=== PATIENT | female | born 1985 | race Caucasian/White ===

== ENCOUNTER 2018-04-12 17:07 | Emergency (ER) | payer OTHER ==
[~2018-04-12] VITALS: Ht 167.6 cm; Wt 74.8 kg
[~2018-04-12 17:07] MED LIST: BACTRIM DS TAB1 EACH PO; CARISOPRODOL 3350 MG PO; CHANTIX1 MG PO; FLEXERIL PO; MOBIC15 MG PO; PERCOCET 5-3251 EACH PO; PREDNISONE 10 M10 MG PO; TRAMADOL 50 MG50 MG; TRAMADOL 50 MG50 MG PO; ULTRAM 50MG TAB50 MG PO; VENTOLIN HFA 1818 GM; VENTOLIN17 GM; XANAX 0.5 MG0.5 MG
[2018-04-12] MEDS ORDERED: ACCUNEB SO1.25 MG/1 INH (17:16)
[2018-04-12 18:03] VITALS: BP 127/72
[2018-04-12] MEDS ORDERED: FLAGYL500 MG PO (18:05)
[2018-04-12] MEDS ORDERED: DOXYCYCLINE 10100 MG PO (18:05)
[2018-04-12] MEDS ORDERED: NAPROSYN500 MG PO (18:05)
== END 2018-04-12 18:12 | disposition home or self-care (01) ==
LOC: M.ERS 17:07
DX: S61.254A Open bite of right ring finger without damage to nail, initial encounter (principal); Z23 Encounter for immunization; F17.210 Nicotine dependence, cigarettes, uncomplicated; J45.909 Unspecified asthma, uncomplicated; Z88.6 Allergy status to analgesic agent; Z88.0 Allergy status to penicillin; W54.0XXA Bitten by dog, initial encounter; Y92.412 Parkway as the place of occurrence of the external cause; Y99.0 Civilian activity done for income or pay; Y99.8 Other external cause status

== ENCOUNTER 2019-08-10 05:02 | Emergency (ER) | payer BC ==
[~2019-08-10] VITALS: Ht 167.6 cm; Wt 73.0 kg
[~2019-08-10 05:02] MED LIST changes: +ACCUNEB SO1.25 MG/1 INH; +DOXYCYCLINE 10100 MG PO; +FLAGYL500 MG PO; +NAPROSYN500 MG PO
[2019-08-10] MEDS ORDERED: PROMETH-CODEIN 65 ML PO (05:37)
[2019-08-10] MEDS ORDERED: FLONASE 0.05%50 MCG NARES (05:37)
[2019-08-10 05:48] LABS: INFLUENZA A ANTIGEN Negative (Negative)
[2019-08-10] MEDS ORDERED: TAMIFLU75 MG PO (05:49)
[2019-08-10 06:05] VITALS: BP 135/71
== END 2019-08-10 06:07 | disposition home or self-care (01) ==
LOC: M.ERS 05:02
PROVIDERS: Emergency Medicine
DX: J10.1 Influenza due to other identified influenza virus with other respiratory manifestations (principal); J45.909 Unspecified asthma, uncomplicated; F17.210 Nicotine dependence, cigarettes, uncomplicated; Z88.0 Allergy status to penicillin; Z88.6 Allergy status to analgesic agent

== ENCOUNTER 2019-11-24 17:29 | Emergency (ER) | payer OTHER ==
[~2019-11-24] VITALS: Ht 165.1 cm; Wt 79.4 kg
[~2019-11-24 17:29] MED LIST changes: +FLONASE 0.05%50 MCG NARES; +PROMETH-CODEIN 65 ML PO; +TAMIFLU75 MG PO
[2019-11-24 17:37] VITALS: BP 129/80
[2019-11-24] MEDS ORDERED: TRAMADOL 50 MG50 MG PO (17:40)
[2019-11-24] MEDS ORDERED: NORCO 5-325 TA1 EAC1 PO (18:12)
[2019-11-24] MEDS ORDERED: MEDROLDOSEPACK PO (18:12)
== END 2019-11-24 18:43 | disposition home or self-care (01) ==
LOC: M.ERS 17:29
DX: M79.605 Pain in left leg (principal); J45.909 Unspecified asthma, uncomplicated; F17.210 Nicotine dependence, cigarettes, uncomplicated; Z88.6 Allergy status to analgesic agent; Z88.0 Allergy status to penicillin; Z79.899 Other long term (current) drug therapy

== ENCOUNTER 2019-12-02 22:53 | Emergency (ER) | payer OTHER ==
[~2019-12-02] VITALS: Ht 167.6 cm; Wt 74.8 kg
[~2019-12-02 22:53] MED LIST changes: +MEDROLDOSEPACK PO; +NORCO 5-325 TA1 EAC1 PO
[2019-12-02] MEDS ORDERED: XANAX (23:06)
[2019-12-03] MEDS ORDERED: VISTARIL 25 MG25 M1 PO (00:34)
[2019-12-03 00:50] VITALS: BP 118/70
== END 2019-12-03 00:50 | disposition home or self-care (01) ==
LOC: M.ERS 22:53
DX: L50.9 Urticaria, unspecified (principal); F17.210 Nicotine dependence, cigarettes, uncomplicated; F41.9 Anxiety disorder, unspecified; J45.909 Unspecified asthma, uncomplicated; Z88.0 Allergy status to penicillin; Z88.6 Allergy status to analgesic agent; Z79.899 Other long term (current) drug therapy

== ENCOUNTER 2020-01-06 23:03 | Emergency (ER) | payer OTHER ==
[~2020-01-06] VITALS: Ht 152.4 cm; Wt 74.8 kg
[~2020-01-06 23:03] MED LIST changes: +VISTARIL 25 MG25 M1 PO; +XANAX
[2020-01-06] MEDS ORDERED: NORCO 5-325 TA1 EAC2 PO (23:21)
[2020-01-06] MEDS ORDERED: CLEOCIN HCL150 M1 PO (23:21)
[2020-01-06 23:30] VITALS: BP 152/72
== END 2020-01-06 23:34 | disposition home or self-care (01) ==
LOC: M.ERS 23:03
DX: K02.9 Dental caries, unspecified (principal); K03.81 Cracked tooth; J45.909 Unspecified asthma, uncomplicated; F17.210 Nicotine dependence, cigarettes, uncomplicated; Z88.6 Allergy status to analgesic agent; Z88.0 Allergy status to penicillin

== ENCOUNTER 2020-02-03 16:03 | Emergency (ER) | payer OTHER ==
[~2020-02-03] VITALS: Ht 167.6 cm; Wt 77.1 kg
[~2020-02-03 16:03] MED LIST changes: +CLEOCIN HCL150 M1 PO; +NORCO 5-325 TA1 EAC2 PO
[2020-02-03] MEDS ORDERED: XANAX1 MG PO (16:28)
[2020-02-03] MEDS ORDERED: TRAMADOL 50 MG50 MG PO (16:28)
[2020-02-03] MEDS ORDERED: BENADRYL25 MG PO (17:56)
[2020-02-03] MEDS ORDERED: ZPAK PO (17:56)
[2020-02-03] MEDS ORDERED: VENTOLIN HFA 1818 GM INH (17:56)
[2020-02-03] MEDS ORDERED: MEDROLDOSEPACK PO (17:56)
[2020-02-03 19:30] VITALS: BP 123/57
== END 2020-02-03 19:30 | disposition home or self-care (01) ==
LOC: M.ERS 16:03
DX: J98.8 Other specified respiratory disorders (principal); L50.9 Urticaria, unspecified; J45.909 Unspecified asthma, uncomplicated; F41.9 Anxiety disorder, unspecified; F17.210 Nicotine dependence, cigarettes, uncomplicated; Z20.828 Contact with and (suspected) exposure to other viral communicable diseases; Z88.0 Allergy status to penicillin; Z88.8 Allergy status to other drugs, medicaments and biological substances

== ENCOUNTER 2020-04-05 14:22 | Emergency (ER) | payer OTHER ==
[~2020-04-05] VITALS: Ht 167.6 cm; Wt 77.1 kg
[~2020-04-05 14:22] MED LIST changes: +BENADRYL25 MG PO; +VENTOLIN HFA 1818 GM INH; +XANAX1 MG PO; +ZPAK PO
[2020-04-05] MEDS ORDERED: NORCO 5-325 TA1 EAC2 PO (16:13)
[2020-04-05 16:25] VITALS: BP 145/85
== END 2020-04-05 16:25 | disposition home or self-care (01) ==
LOC: M.ERS 14:22
DX: M25.511 Pain in right shoulder (principal); R07.89 Other chest pain; J45.901 Unspecified asthma with (acute) exacerbation; F17.210 Nicotine dependence, cigarettes, uncomplicated; Z88.6 Allergy status to analgesic agent; Z88.0 Allergy status to penicillin

== ENCOUNTER 2020-04-27 22:09 | Emergency (ER) | payer OTHER ==
[~2020-04-27] VITALS: Ht 167.6 cm; Wt 77.1 kg
[2020-04-27] MEDS ORDERED: PREDNISONE 20 M20 MG PO (22:40)
[2020-04-27 23:11] VITALS: BP 124/84
== END 2020-04-27 23:12 | disposition home or self-care (01) ==
LOC: M.ERS 22:09
DX: J30.81 Allergic rhinitis due to animal (cat) (dog) hair and dander (principal); R06.02 Shortness of breath; F41.9 Anxiety disorder, unspecified; F17.210 Nicotine dependence, cigarettes, uncomplicated; Z79.899 Other long term (current) drug therapy; Z88.6 Allergy status to analgesic agent; Z88.0 Allergy status to penicillin

== ENCOUNTER 2020-05-20 19:50 | Emergency (ER) | payer OTHER ==
[~2020-05-20] VITALS: Ht 167.6 cm; Wt 77.1 kg
[~2020-05-20 19:50] MED LIST changes: +PREDNISONE 20 M20 MG PO
[2020-05-20 20:36] LABS: INFLUENZA A ANTIGEN Negative (Negative); INFLUENZA B ANTIGEN Negative (Negative)
[2020-05-20] MEDS ORDERED: ALBUTEROL2.5 MG/31 INH ×2 (21:21→21:52)
[2020-05-20] MEDS ORDERED: PREDNISONE50 MG PO ×2 (21:21→21:54)
[2020-05-20] MEDS ORDERED: PROAIR HFA8.5 GM INH ×2 (21:21→21:53)
[2020-05-20 21:45] VITALS: BP 123/81
== END 2020-05-20 21:46 | disposition home or self-care (01) ==
LOC: M.ERS 19:50
PROVIDERS: Emergency Medicine
DX: J40 Bronchitis, not specified as acute or chronic (principal); Z20.828 Contact with and (suspected) exposure to other viral communicable diseases; J45.909 Unspecified asthma, uncomplicated; F17.210 Nicotine dependence, cigarettes, uncomplicated; Z88.6 Allergy status to analgesic agent; Z88.0 Allergy status to penicillin

== ENCOUNTER 2020-07-06 11:48 | Emergency (ER) | payer OTHER ==
[~2020-07-06] VITALS: Ht 167.6 cm; Wt 79.4 kg
[~2020-07-06 11:48] MED LIST changes: +ALBUTEROL2.5 MG/31 INH; +PREDNISONE50 MG PO; +PROAIR HFA8.5 GM INH
[2020-07-06 12:02] VITALS: BP 124/71
[2020-07-06 12:04] LABS: URINE BILIRUBIN NEGATIVE (Negative); URINE BLOOD 1+ (Negative); URINE CLARITY CLEAR; URINE COLOR DARK YELLOW; URINE GLUCOSE-RANDOM NEGATIVE (Negative); URINE KETONES NEGATIVE (Negative); URINE LEUKOCYTES-REFLEX NEGATIVE (Negative); URINE NITRITE-REFLEX NEGATIVE (Negative); URINE PROTEIN NEGATIVE (Negative); URINE SPECIFIC GRAVITY >= 1.030 (1.005-1.030); URINE UROBILINOGEN 0.2 E.U./dl (0.2-1.0)
[2020-07-06 12:09] LABS: SQUAMOUS 4-10 Moderate /LPF (0-3); URINE WBC-REFLEX None Seen /HPF (0-5)
[2020-07-06 12:10] LABS: BACTERIA-REFLEX >30 Many /HPF (None Seen); CASTS None Seen /LPF (None Seen); CRYSTALS None Seen /LPF (None Seen); MUCUS >6 Heavy strn/LPF (None Seen); URINE RBC 0-2 Rare /HPF (0-2)
[2020-07-06] MEDS ORDERED: ZOFRAN ODT4 MG PO (12:31)
== END 2020-07-06 12:30 | disposition home or self-care (01) ==
LOC: M.ERS 11:48
PROVIDERS: Nurse Practitioner Family
DX: B34.9 Viral infection, unspecified (principal); Z20.828 Contact with and (suspected) exposure to other viral communicable diseases; J45.909 Unspecified asthma, uncomplicated; F17.210 Nicotine dependence, cigarettes, uncomplicated; Z88.6 Allergy status to analgesic agent; Z88.0 Allergy status to penicillin

== ENCOUNTER 2021-01-09 10:52 | Emergency (ER) | payer OTHER ==
[~2021-01-09] VITALS: Ht 167.6 cm; Wt 81.7 kg
[~2021-01-09 10:52] MED LIST changes: +ZOFRAN ODT4 MG PO
[2021-01-09 11:36] LABS: URINE BILIRUBIN NEGATIVE (Negative); URINE BLOOD NEGATIVE (Negative); URINE CLARITY CLEAR; URINE COLOR YELLOW; URINE GLUCOSE-RANDOM NEGATIVE (Negative); URINE KETONES NEGATIVE (Negative); URINE LEUKOCYTES-REFLEX NEGATIVE (Negative); URINE NITRITE-REFLEX NEGATIVE (Negative); URINE PROTEIN NEGATIVE (Negative); URINE UROBILINOGEN 0.2 E.U./dl (0.2-1.0)
[2021-01-09 11:39] LABS: ABSOLUTE BASOPHILS 0.1 thou/uL (0.0-0.2); ABSOLUTE EOSINOPHILS 0.2 thou/uL (0.0-0.7); ABSOLUTE MONOCYTES 0.4 thou/uL (0.0-1.2); ABSOLUTE NEUTROPHILS 7.7 thou/uL (1.6-8.1); BASOPHILS 0.8 %; EOSINOPHILS 1.6 %; HEMATOCRIT 44.1 % (37.0-47.0); HEMOGLOBIN 14.8 gm/dL (12.0-15.0); LYMPHOCYTES 26.4 %; MCH 30.5 pg (26.0-34.0); MCHC 33.6 g/dL (28.0-37.0); MCV 90.7 fL (80.0-100.0); MONOCYTES 3.7 %; MPV 8.3 fl. (7.2-11.1); NUCLEATED RBCS 0 /100WBC; PLATELET COUNT* 261 thou/uL (150-400); POLYS 67.5 %; RBC 4.87 mil/uL (4.20-5.00); RDW-CV 13.7 % (10.5-14.5); WBC 11.4 thou/uL (4.0-11.0)
[2021-01-09] MEDS ORDERED: TRAMADOL 50 MG50 MG PO (12:27)
[2021-01-09 12:30] LABS: CALCIUM 8.3 mg/dL (8.5-10.1); CREATININE 0.7 mg/dL (0.6-1.3); POTASSIUM 3.4 mmol/L (3.5-5.1)
[2021-01-09 12:34] LABS: ALBUMIN 4.3 g/dL (3.4-5.0); TOTAL BILIRUBIN 0.2 mg/dL (<0.1-1.0); TOTAL PROTEIN 7.8 g/dL (6.4-8.2)
[2021-01-09 12:45] VITALS: BP 125/80
== END 2021-01-09 12:46 | disposition home or self-care (01) ==
LOC: M.ERS 10:52
PROVIDERS: Family Medicine
DX: R10.32 Left lower quadrant pain (principal); J45.909 Unspecified asthma, uncomplicated; F41.9 Anxiety disorder, unspecified; F17.210 Nicotine dependence, cigarettes, uncomplicated; Z79.899 Other long term (current) drug therapy; Z88.1 Allergy status to other antibiotic agents; Z88.0 Allergy status to penicillin

== ENCOUNTER 2021-02-24 21:28 | Emergency (ER) | payer OTHER ==
[~2021-02-24] VITALS: Ht 167.6 cm; Wt 74.8 kg
[2021-02-24] MEDS ORDERED: HYDROCODON-ACE1 EAC8 PO (23:06)
[2021-02-24] MEDS ORDERED: KEFLEX250 MG PO (23:06)
[2021-02-24 23:13] VITALS: BP 128/79
== END 2021-02-24 23:14 | disposition home or self-care (01) ==
LOC: M.ERS 21:28
DX: K02.9 Dental caries, unspecified (principal); R51.9 Headache, unspecified; J45.909 Unspecified asthma, uncomplicated; F41.0 Panic disorder [episodic paroxysmal anxiety]; F17.210 Nicotine dependence, cigarettes, uncomplicated; Z79.899 Other long term (current) drug therapy; Z88.6 Allergy status to analgesic agent; Z88.0 Allergy status to penicillin

== ENCOUNTER 2021-03-01 20:12 | Emergency (ER) | payer OTHER ==
[~2021-03-01] VITALS: Ht 167.6 cm; Wt 77.1 kg
[~2021-03-01 20:12] MED LIST changes: +HYDROCODON-ACE1 EAC8 PO; +KEFLEX250 MG PO
[2021-03-01 21:33] LABS: ABSOLUTE BASOPHILS 0.1 thou/uL (0.0-0.2); ABSOLUTE EOSINOPHILS 0.5 thou/uL (0.0-0.7); ABSOLUTE LYMPHOCYTES 2.4 thou/uL (0.8-5.3); ABSOLUTE MONOCYTES 0.5 thou/uL (0.0-1.2); ABSOLUTE NEUTROPHILS 5.7 thou/uL (1.6-8.1); BASOPHILS 0.8 %; HEMATOCRIT 37.2 % (37.0-47.0); LYMPHOCYTES 26.2 %; MCH 31.6 pg (26.0-34.0); MCV 90.4 fL (80.0-100.0); MONOCYTES 5.8 %; MPV 8.3 fl. (7.2-11.1); NUCLEATED RBCS 0 /100WBC; PLATELET COUNT* 217 thou/uL (150-400); POLYS 62.2 %; RBC 4.12 mil/uL (4.20-5.00); RDW-CV 13.6 % (10.5-14.5); WBC 9.1 thou/uL (4.0-11.0)
[2021-03-01 21:40] LABS: CALCIUM 8.3 mg/dL (8.5-10.1); CREATININE 0.7 mg/dL (0.6-1.3); POTASSIUM 3.2 mmol/L (3.5-5.1)
[2021-03-01 21:44] LABS: ALBUMIN 3.1 g/dL (3.4-5.0); TOTAL BILIRUBIN 0.2 mg/dL (<0.1-1.0); TOTAL PROTEIN 6.3 g/dL (6.4-8.2)
[2021-03-01 23:05] VITALS: BP 110/63
== END 2021-03-01 23:05 | disposition home or self-care (01) ==
LOC: M.ERS 20:12
PROVIDERS: Nurse Practitioner Family
DX: R51.9 Headache, unspecified (principal); Z20.822 Contact with and (suspected) exposure to COVID-19; J45.909 Unspecified asthma, uncomplicated; F41.9 Anxiety disorder, unspecified; F17.210 Nicotine dependence, cigarettes, uncomplicated; Z79.51 Long term (current) use of inhaled steroids; Z79.1 Long term (current) use of non-steroidal anti-inflammatories (NSAID); Z79.891 Long term (current) use of opiate analgesic; Z79.899 Other long term (current) drug therapy; Z88.5 Allergy status to narcotic agent; Z88.0 Allergy status to penicillin

== ENCOUNTER 2021-07-30 00:14 | Emergency (ER) | payer OTHER ==
[~2021-07-30] VITALS: Ht 167.6 cm; Wt 80.3 kg
[2021-07-30] MEDS ORDERED: TRAMADOL 50 MG50 MG PO (02:35)
[2021-07-30] MEDS ORDERED: CLEOCIN HCL300 MG PO (02:35)
[2021-07-30] MEDS ORDERED: APAP W/CODEINE1 TA2 PO (02:49)
[2021-07-30 02:56] VITALS: BP 137/87
== END 2021-07-30 02:56 | disposition home or self-care (01) ==
LOC: M.ERS 00:14
DX: K08.89 Other specified disorders of teeth and supporting structures (principal); J45.909 Unspecified asthma, uncomplicated; F41.9 Anxiety disorder, unspecified; F17.210 Nicotine dependence, cigarettes, uncomplicated; Z79.51 Long term (current) use of inhaled steroids; Z79.899 Other long term (current) drug therapy; Z88.5 Allergy status to narcotic agent; Z88.0 Allergy status to penicillin